=== PATIENT | female | born 1935 | race Caucasian/White ===

== ENCOUNTER → 2018-06-26 10:31 | Outpatient (BNVA) | payer OTHER, SELFPAY | PROVIDERS: PCP Nurse Practitioner; Referring Provider Family Medicine; Visit Provider Orthopaedic Surgery | DX: Z47.1 Aftercare following joint replacement surgery (principal); Z96.652 Presence of left artificial knee joint | CPT/HCPCS: 99211; 99212 ==

== ENCOUNTER 2022-11-06 13:49 | Outpatient (CLI) | payer MEDICARE, SELFPAY ==
--- NOTE | 2022-11-06 13:30 | DI.RAD_ITS ---
Exam(s) XR KNEE RT 2V AP,LAT EXAM: XR KNEE RT 2V AP,LAT CLINICAL HISTORY: f/u R TKA. TECHNIQUE: 2D digital imaging was performed. Two images were obtained. AP and lateral views were ob tained. COMPARISON: CR RIGHT KNEE LIMITED 1 OR 2 VIEW from 06/18/2014 FINDINGS: BONES: There are stable post operative changes present. No fracture or dislocation. The patella is a bsent. JOINTS: The orthopedic hardware is in good position. No evidence of hardware loosening. SOFT TISSUE: Dystrophic calcifications are seen in the soft tissues. IMPRESSION: Stable postoperative changes. DATA REPOSITORY: RADIATION DOSE DELIVERED:
== END 2022-11-06 13:50 | disposition home or self-care (01) ==
LOC: DIORS 13:50
PROVIDERS: PCP Nurse Practitioner Family; Referring Provider Nurse Practitioner Family; Visit Provider Student in an Organized Health Care Education/Training Program
DX: Z96.651 Presence of right artificial knee joint (principal); M16.11 Unilateral primary osteoarthritis, right hip; M16.12 Unilateral primary osteoarthritis, left hip
CPT/HCPCS: 99203; 73560